=== PATIENT | female | born 1990 | race Caucasian/White ===

== ENCOUNTER 2017-12-25 18:21 | Inpatient (IN) | payer BC ==
[2017-12-25] MEDS ORDERED: Acetaminophen 325 MG Tab PO PRN (18:50)
[2017-12-25] MEDS ORDERED: Ondansetron 4 MG Tab.DIS PO PRN (18:50)
[2017-12-25] MEDS ORDERED: Sodium Chloride 0.9% 10 ML Syringe FLUSH PRN (18:50)
--- NOTE | 2017-12-25 18:59 | PCM.LDHP ---
L&D History of Present Illness - General Date of Service: 12/25/17 (labor) Admit Problem/Dx: Patient Status Order with Admit Dx/Problem 12/25/17 18:51 Patient Status [ADT] Routine Admission Diagnosis/Problem Admission Diagnosis/Problem and not yet delivered Source of Information: Patient History Limitations: Reports: No Limitations - History of Present Illness Introduction:: THis 27 year old G1 who is 40 gestation today present sin active labor. Contractions started this morning. Then became strong between 330-400 this afternoon. Call and was instructed to come. Is dilated to 8 cm. 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: : 1 Para: 0 LMP (Approximate): (ANGELA 12/25/17) H&P Review of Systems - Review of Systems: Review Of Systems: See Below General: Reports: No Symptoms HEENT: Reports: No Symptoms Pulmonary: Reports: No Symptoms Cardiovascular: Reports: No Symptoms Gastrointestinal: Reports: No Symptoms Genitourinary: Reports: No Symptoms Musculoskeletal: Reports: No Symptoms Skin: Reports: No Symptoms Psychiatric: Reports: No Symptoms Neurological: Reports: No Symptoms Hematologic/Lymphatic: Reports: No Symptoms Immunologic: Reports: No Symptoms L&D Exam - Exam Exam: See Below - Vital Signs Weight: 194 lb - OB Specific Contraction Intensity: Moderate Movement: Active Heart Tones: Present Heart Tones per Min: 150 Heart Rate (FHR) Variability: Moderate (6-25 bmp) Presentation: Vertex Estimated Weight: 7-8 pounds - Daley Score Daley Score Cervix Position: Anterior Daley Score Consistency: Soft Daley Score Effacement: >80% Daley Score Dilation: > 5 cm Daley Score 's Station: +1, +2 Daley Score Total: 13 - Exam General: Alert, Oriented HEENT: PERRLA, Conjunctiva Clear, EACs Clear, EOMI, Hearing Intact, Mucosa Moist & [place], Nares Patent, Normal Nasal Septum, Posterior Pharynx Clear, TMs Clear Neck: Supple, Trachea Midline Lungs: Clear to Auscultation, Normal Respiratory Effort Cardiovascular: Regular Rate, Regular Rhythm GI/Abdominal Exam: Normal Bowel Sounds, Soft, Non-Tender, No Organomegaly, No Distention, No Abnormal Bruit, No Mass, Pelvis Stable Rectal Exam: Normal Exam, Normal Rectal Tone Genitourinary: Normal external exam, Normal bimanual exam, Normal speculum exam Back Exam: Normal Inspection, Full Range of Motion Extremities: Normal Inspection, Normal Range of Motion, Non-Tender, No Pedal Edema, Normal Capillary Refill Skin: Warm, Dry, Intact Neurological: Cranial Nerves Intact, Reflexes Equal Bilateral Psychiatric: Alert, Normal Affect, Normal Mood - Problem List (1) SNOMED Code(s): 77988939 ICD Code: Z34.90 - ENCNTR FOR SUPRVSN OF NORMAL , UNSP, UNSP TRIMESTER Status: Acute Current Visit: Yes Qualifiers: Weeks of gestation: 40 weeks Qualified Code(s): Z3A.40 - 40 weeks gestation of (2) Labor established SNOMED Code(s): 79064725 ICD Code: [id number] - Status: Acute Current Visit: Yes Problem List Initiated/Reviewed/Updated: Yes Orders Last 24hrs: Active Orders 24 hr Category Date Time Status Patient Status [ADT] Routine ADT 12/25/17 18:51 Ordered Antiembolic Devices [RC] .Routine Care 12/25/17 18:52 Ordered Communication Order [RC] ASDIRECTED Care 12/25/17 18:51 Ordered Heart Tones [RC] PER UNIT ROUTINE Care 12/25/17 18:51 Ordered Notify Provider Vital Signs [RC] PRN Care 12/25/17 18:50 Ordered Notify Provider [RC] PRN Care 12/25/17 18:51 Ordered OB Check [OM.PC] Click to Edit Care 12/25/17 18:37 Ordered VTE/DVT Education [RC] Click to Edit Care 12/25/17 18:52 Ordered Vital Signs [RC] PER UNIT ROUTINE Care 12/25/17 18:51 Ordered Regular Diet [DIET] Diet 12/26/17 Breakfast Ordered CBC W/O DIFF,HEMOGRAM [HEME] Routine Lab 12/25/17 18:44 Ordered DRUG SCREEN, URINE [URCHEM] Routine Lab 12/25/17 18:44 Ordered UA W/MICROSCOPIC [URIN] Routine Lab 12/25/17 18:37 Ordered Acetaminophen [Tylenol] Med 12/25/17 18:50 Ordered 650 mg PO Q4H PRN Ondansetron [Zofran ODT] Med 12/25/17 18:50 Ordered 4 mg PO Q4H PRN Oxytocin/Normal Saline [Pitocin in NS 20 Units/1,000 ML Med 12/25/17 18:49 Ordered ] 20 unit in 1,000 ml IV ONETIME Sodium Chloride 0.9% [Saline Flush] Med 12/25/17 18:50 Ordered 10 ml FLUSH ASDIRECTED PRN DVT/VTE Prophylaxis Reflex [OM.PC] Routine Oth 12/25/17 18:50 Ordered Saline Lock Insert [OM.PC] Routine Oth 12/25/17 18:51 Ordered Resuscitation Status Routine Resus Stat 12/25/17 18:50 Ordered Medication Orders Oxytocin/Sodium Chloride (Pitocin In Ns 20 Units/1,000 Ml) 20 unit in 1,000 mls @ 999 mls/hr IV ONETIME ONE PRN Reason: Protocol Stop: 12/25/17 19:49 Assessment/Plan Comment:: 12/25/17 27 year old g1 40 weeks Active labor Paln for vaginal delivery
[2017-12-25] MEDS ORDERED: Lactated Ringers 1,000 ML IV SCH (19:20)
[2017-12-25] MEDS ORDERED: Lidocaine 1% 50 ML MDV ONE (21:34)
[2017-12-25] MEDS ORDERED: Acetaminophen/Codeine 300-30 MG Tab PO PRN (22:57)
--- NOTE | 2017-12-25 23:10 | PCM.DEL ---
L & D Note - General Info Date of Service: 12/25/17 Mother's Due Date: 12/25/17 - Delivery Note Labor: Spontaneous Delivery Outcome: Livebirth Infant Delivery Method: Spontaneous Vaginal Delivery-Single Infant Delivery Mode: Vacuum Extraction Presentation: Right Occiput Posterior (ROP) Nuchal Cord: Present Anesthesia Type: Local Local Anesthetic Volume: 5cc Amniotic Fluid Description: Clear Episiotomy Type: None Laceration: 3rd Degree, Perineal, Vaginal Suture type: Chromic Suture size: 3-0 Placenta: Intact, Spontaneous Cord: 3 Vessels Estimated Blood Loss: 300 (from delivery) Resuscitation Needed: No : Bulb Syringe, Stimulated, Warmed, Canal [place] Used Provider: Pia Dobbs Score 1 min: 8 Score 5 min: 9 Post Delivery Events: Other (see below) (vagina wall tear and 3 degree perineal tear with repair in OR) Second Stage Interventions: Reports: Second Nurse Reviewed Heart Tones, Encouragement Given, Pushing, Knee Chest Position, Pushing, McRobert's Position , Pushing, Squat Bar Pulling on Device, Pushing, Stirrups/Leg Supports Delivery Comments (Free Text/Narrative):: This 27 year old G1 now P1 who is 40 weeks gestation delivered at 2153 via with vacuum assist a viable male infant in ROP, there was a nucal cord which was reduced before delivery of body. The was placed on mother's abdomen where he cried spontaneously, he was dried and stimulated, the cord was double clamped and cut. three vessels. Apgars 8 and 9 all for color. The placenta was expressed spontaneously intact. There was a right vaginal wall tear and a deep second degree perineal tear. the muscle wasn't tore at the sphincter but top of the rectal muscle wall was visualized. No lacerations of the cervix were found. EBL 300cc Mother and baby to post and nursery in stable condition. procedure note repair of right vaginal wall laceration and deep 2nd perineal tear under region spinal and OR. Surgeon: Pia Dobbs CNM business development assistant Evangelist Dobbs MD pre-op Diagnosis right vagina wall taer and deep second degree perineal tear. Post -op DX: same Anesthesia: spinal EBL 100cc Complications none Informed consent was obtained prior to repair and risks and benefits were reviewed. Procedure: Bliss placed The apex of the vagina wall tear was visualized and a deep stitch was placed. Then locking running stitches were placed until the hymenal ring. Then deep interrupted sutures were placed to close the deep space. a figure of eight suture was placed at the hymenal ring. A digital exam was done to assess for rectal wall disruption, none found. The perineum was then repaired as a episiotomy, the fascia and muscles repaired in layers with subcuticular and finishing with cuticular, reassessment of rectum no sutures or disruptions found. Patient to recovery in stable condition Vacuum Extractor Progress Note - Alternative Labor Strategies Considered Alternative Labor Strategies Considered:: Reports: Yes Time Out:: Reports: Yes - Patient Prepared Patient Prepared:: Reports: Yes Informed Consent:: Reports: Yes Risks: Reports: Yes Risks Include:: Reports: Laceration, Shoulder Dystocia, Maternal Injury Anesthesia/Analgesia Adequate:: Reports: Yes - Probability of Success High Probability of Success:: Reports: Yes Weight Estimated:: Reports: AGA Patient Diabetic:: Reports: No Pelvis Adequate:: Reports: Yes Asynclitic:: Reports: No - Application Time Maximum Application Time & Number of Pop-Offs Predetermined:: Reports: Yes Type of Vacuum Used:: Reports: Cup: Mushroom type Vacuum Extraction: Successful - Exit Strategy Exit strategy available:: Reports: Yes and resuscitation teams readily available:: Reports: Yes - General Info Date of Service: 12/25/17 Admission Dx/Problem (Free Text): Patient Status Order with Admit Dx/Problem 12/25/17 18:51 Patient Status [ADT] Routine Admission Diagnosis/Problem Admission Diagnosis/Problem and not yet delivered Functional Status: Reports: Pain Controlled - Review of Systems General: Reports: No Symptoms HEENT: Reports: No Symptoms Pulmonary: Reports: No Symptoms Cardiovascular: Reports: No Symptoms Gastrointestinal: Reports: No Symptoms Genitourinary: Reports: No Symptoms Musculoskeletal: Reports: No Symptoms Skin: Reports: No Symptoms Neurological: Reports: No Symptoms Psychiatric: Reports: No Symptoms - Patient Data Vitals - Most Recent: Last Vital Signs Temp 98.8 F 12/25/17 19:21 Pulse Resp 16 12/25/17 19:21 BP 128/98 H 12/25/17 19:21 Pulse Ox Weight - Most Recent: 194 lb Lab Results Last 24 Hours: Laboratory Results - last 24 hr 12/25/17 12/25/17 12/25/17 Range/Units 18:37 18:44 18:54 WBC 15.8 H (4.5-11.0) K/uL RBC 4.46 (3.30-5.50) M/uL Hgb 13.0 (12.0-15.0) g/dL Hct 38.4 (36.0-48.0) % MCV 86 (80-98) fL MCH 29 (27-31) pg MCHC 34 (32-36) % Plt Count 248 (150-400) K/uL Urine Color Yellow Urine Appearance Cloudy Urine pH 6.0 (4.5-8.0) Ur Specific [place] 1.020 (1.008-1.030) Urine Protein Negative (NEGATIVE) mg/dL Urine Glucose (UA) Normal (NEGATIVE) mg/dL Urine Ketones 150 H (NEGATIVE) mg/dL Urine Occult Blood Large (NEGATIVE) Urine Nitrite Negative (NEGATIVE) Urine Bilirubin Small (NEGATIVE) Urine Urobilinogen Normal (NORMAL) mg/dL Ur Leukocyte Esterase Moderate (NEGATIVE) Urine RBC 10-20 H (0-5) Urine WBC 10-20 H (0-5) Ur Epithelial Cells Many Amorphous Sediment Rare Urine Bacteria Many Urine Mucus Few Urine Opiates Screen Negative (NEGATIVE) Ur Oxycodone Screen Negative (NEGATIVE) Urine Methadone Screen Negative (NEGATIVE) Ur Propoxyphene Screen Negative (NEGATIVE) Ur Barbiturates Screen Negative (NEGATIVE) Ur Tricyclics Screen Negative (NEGATIVE) Ur Phencyclidine Scrn Negative (NEGATIVE) Ur Amphetamine Screen Negative (NEGATIVE) U Methamphetamines Scrn Negative (NEGATIVE) Urine MDMA Screen Negative (NEGATIVE) U Benzodiazepines Scrn Negative (NEGATIVE) U Cocaine Metab Screen Negative (NEGATIVE) U Marijuana (THC) Screen Negative (NEGATIVE) Med Orders - Current: Current Medications Acetaminophen (Tylenol) 650 mg PO Q4H PRN PRN Reason: Pain (Mild 1-3) and fever Acetaminophen/Codeine Phosphate (Tylenol With Codeine No.3 300mg/30mg) 1 tab PO Q4H PRN PRN Reason: Pain (moderate 4-6) Docusate Sodium (Colace) 100 mg PO BID [facility] Lactated Ringer's (Ringers, Lactated) 1,000 mls @ 50 mls/hr IV ASDIRECTED [facility] Last Admin: 12/25/17 19:20 Dose: 50 mls/hr Ibuprofen (Motrin) 600 mg PO Q6H PRN PRN Reason: mild pain or fever Ondansetron HCl (Zofran Odt) 4 mg PO Q4H PRN PRN Reason: Nausea/Vomiting Sodium Chloride (Saline Flush) 10 ml FLUSH ASDIRECTED PRN PRN Reason: Keep Vein Open Discontinued Medications Oxytocin/Sodium Chloride (Pitocin In Ns 20 Units/1,000 Ml) 20 unit in 1,000 mls @ 999 mls/hr IV ONETIME ONE PRN Reason: Protocol Stop: 12/25/17 19:49 Lidocaine HCl (Xylocaine 1%) Confirm Administered Dose 50 ml .ROUTE .STK-MED ONE Stop: 12/25/17 21:35 - Exam General: Alert, Oriented HEENT: Pupils Equal, Pupils Reactive, EOMI, Mucous Membr. Moist/[place] Neck: Supple Lungs: Clear to Auscultation, Normal Respiratory Effort Cardiovascular: Regular Rate, Regular Rhythm GI/Abdominal Exam: Normal Bowel Sounds, Soft, Non-Tender, No Organomegaly, No Distention, No Abnormal Bruit, No Mass, Pelvis Stable (Female) Exam: Normal External Exam, Normal Speculum Exam, Normal Bimanual Exam, Enlarged Uterus, Vaginal Bleeding, Vaginal Tears Back Exam: Normal Inspection, Full Range of Motion Extremities: Normal Inspection, Normal Range of Motion, Non-Tender, No Pedal Edema, Normal Capillary Refill Skin: Warm, Dry, Intact Wound/Incisions: Healing Well Neurological: No New Focal Deficit Psy/Mental Status: Alert, Normal Affect, Normal Mood - Problem List & Annotations (1) SNOMED Code(s): 48108917 Code(s): Z34.90 - ENCNTR FOR SUPRVSN OF NORMAL , UNSP, UNSP TRIMESTER Status: Acute Current Visit: Yes Qualifiers: Weeks of gestation: 40 weeks Qualified Code(s): Z3A.40 - 40 weeks gestation of (2) Labor established SNOMED Code(s): 98403429 Code(s): ZPP8928 - Status: Acute Current Visit: Yes (3) Delivery of first by vacuum extraction SNOMED Code(s): 126561442 Code(s): O75.9 - COMPLICATION OF LABOR AND DELIVERY, UNSPECIFIED Status: Acute Current Visit: Yes (4) Vaginal tear resulting from childbirth SNOMED Code(s): 621342747 Code(s): O71.4 - OBSTETRIC HIGH VAGINAL LACERATION ALONE Status: Acute Current Visit: Yes (5) Vaginal delivery SNOMED Code(s): 538664858 Code(s): O80 - ENCOUNTER FOR FULL-TERM UNCOMPLICATED DELIVERY Status: Acute Current Visit: Yes - Problem List Review Problem List Initiated/Reviewed/Updated: Yes - My Orders Last 24 Hours: My Active Orders 12/25/17 18:37 OB Check [OM.PC] Click to Edit 12/25/17 18:50 Notify Provider Vital Signs [RC] PRN Acetaminophen [Tylenol] 650 mg PO Q4H PRN Ondansetron [Zofran ODT] 4 mg PO Q4H PRN Sodium Chloride 0.9% [Saline Flush] 10 ml FLUSH ASDIRECTED PRN DVT/VTE Prophylaxis Reflex [OM.PC] Routine Resuscitation Status Routine 12/25/17 18:51 Communication Order [RC] ASDIRECTED Heart Tones [RC] PER UNIT ROUTINE Vital Signs [RC] PER UNIT ROUTINE Saline Lock Insert [OM.PC] Routine 12/25/17 18:52 Antiembolic Devices [RC] .Routine VTE/DVT Education [RC] Click to Edit 12/25/17 19:20 Lactated Ringers [Ringers, Lactated] 1,000 ml IV ASDIRECTED 12/25/17 22:55 CBC W/O DIFF,HEMOGRAM [HEME] Routine 12/25/17 22:56 TYPE AND SCREEN [BBK] Routine 12/25/17 22:57 Patient Status [ADT] Routine Vital Signs [RC] PFP Acetaminophen/Codeine [Tylenol with Codeine No.3 300MG/30MG] 1 tab PO Q4H PRN Ibuprofen [Motrin] 600 mg PO Q6H PRN 12/26/17 05:11 CBC WITH AUTO DIFF [HEME] AM 12/26/17 09:00 Docusate Sodium [Colace] 100 mg PO BID 12/26/17 Breakfast Regular Diet [DIET] - Assessment Assessment:: 12/25/17 27 year old 40 weeks gestation with , Complications vaginal wall tear and 3 rd degree perineal tear with repairs breast feeding bliss until 0800 12/26/17 routine post cares ice to bottom times 24 hours stool softener ordered, scheduled hgb in am - Plan Plan:: 12/25/17 27 year old g1 40 weeks Active labor Plan for vaginal delivery vaginal delivery with tears repaired in OR see note 48 hour stay
[2017-12-26] MEDS: Ibuprofen 600 MG Tab PO PRN ×4 (00:41→21:12)
[2017-12-26] MEDS ORDERED: Lidocaine 1% 50 ML MDV INJECT ONE (03:43)
[2017-12-26] MEDS: Docusate Sodium 100 MG Cap PO SCH ×2 (09:12→21:12)
--- NOTE | 2017-12-26 10:26 | PCM.PNPP ---
- General Info Date of Service: 12/26/17 (PPD one) Admission Dx/Problem (Free Text): Patient Status Order with Admit Dx/Problem 12/25/17 18:51 Patient Status [ADT] Routine Admission Diagnosis/Problem Admission Diagnosis/Problem and not yet delivered Functional Status: Reports: Pain Controlled - Review of Systems General: Reports: No Symptoms HEENT: Reports: No Symptoms Pulmonary: Reports: No Symptoms Cardiovascular: Reports: No Symptoms Gastrointestinal: Reports: Other (lots of pressure from swelling and repair work ) Genitourinary: Reports: Other (hasn't voided since bliss out at 0830, nursing to monitor) Musculoskeletal: Reports: No Symptoms Skin: Reports: No Symptoms Neurological: Reports: No Symptoms Psychiatric: Reports: No Symptoms - General Info Date of Service: 12/26/17 - Patient Data Vital Signs - Most Recent: Last Vital Signs Temp 98.6 F 12/26/17 08:00 Pulse 99 12/26/17 08:00 Resp 16 12/26/17 08:00 BP 130/92 H 12/26/17 08:00 Pulse Ox 97 12/26/17 08:00 Weight - Most Recent: 194 lb I&O - Last 24 Hours: Intake & Output 12/25/17 12/26/17 12/26/17 22:59 06:59 14:59 Intake Total 300 Output Total 1350 500 Balance -1050 -500 Lab Results - Last 24 Hours: Laboratory Results - last 24 hr 12/25/17 12/25/17 12/25/17 Range/Units 18:37 18:44 18:54 WBC 15.8 H (4.5-11.0) K/uL RBC 4.46 (3.30-5.50) M/uL Hgb 13.0 (12.0-15.0) g/dL Hct 38.4 (36.0-48.0) % MCV 86 (80-98) fL MCH 29 (27-31) pg MCHC 34 (32-36) % Plt Count 248 (150-400) K/uL Neut % (Auto) (36-66) % Lymph % (Auto) (24-44) % [place] % (Auto) (2-6) % Eos % (Auto) (2-4) % Baso % (Auto) (0-1) % Urine Color Yellow Urine Appearance Cloudy Urine pH 6.0 (4.5-8.0) Ur Specific [place] 1.020 (1.008-1.030) Urine Protein Negative (NEGATIVE) mg/dL Urine Glucose (UA) Normal (NEGATIVE) mg/dL Urine Ketones 150 H (NEGATIVE) mg/dL Urine Occult Blood Large (NEGATIVE) Urine Nitrite Negative (NEGATIVE) Urine Bilirubin Small (NEGATIVE) Urine Urobilinogen Normal (NORMAL) mg/dL Ur Leukocyte Esterase Moderate (NEGATIVE) Urine RBC 10-20 H (0-5) Urine WBC 10-20 H (0-5) Ur Epithelial Cells Many Amorphous Sediment Rare Urine Bacteria Many Urine Mucus Few Urine Opiates Screen Negative (NEGATIVE) Ur Oxycodone Screen Negative (NEGATIVE) Urine Methadone Screen Negative (NEGATIVE) Ur Propoxyphene Screen Negative (NEGATIVE) Ur Barbiturates Screen Negative (NEGATIVE) Ur Tricyclics Screen Negative (NEGATIVE) Ur Phencyclidine Scrn Negative (NEGATIVE) Ur Amphetamine Screen Negative (NEGATIVE) U Methamphetamines Scrn Negative (NEGATIVE) Urine MDMA Screen Negative (NEGATIVE) U Benzodiazepines Scrn Negative (NEGATIVE) U Cocaine Metab Screen Negative (NEGATIVE) U Marijuana (THC) Screen Negative (NEGATIVE) Blood Type Gel Antibody Screen 12/25/17 12/25/17 12/26/17 Range/Units 22:55 22:55 05:00 WBC 22.5 H 20.5 H (4.5-11.0) K/uL RBC 4.08 3.61 (3.30-5.50) M/uL Hgb 11.9 L 10.7 L (12.0-15.0) g/dL Hct 35.3 L 31.4 L (36.0-48.0) % MCV 87 87 (80-98) fL MCH 29 30 (27-31) pg MCHC 34 34 (32-36) % Plt Count 217 215 (150-400) K/uL Neut % (Auto) 85 H (36-66) % Lymph % (Auto) 7 L (24-44) % [place] % (Auto) 8 H (2-6) % Eos % (Auto) 0 L (2-4) % Baso % (Auto) 0 (0-1) % Urine Color Urine Appearance Urine pH (4.5-8.0) Ur Specific [place] (1.008-1.030) Urine Protein (NEGATIVE) mg/dL Urine Glucose (UA) (NEGATIVE) mg/dL Urine Ketones (NEGATIVE) mg/dL Urine Occult Blood (NEGATIVE) Urine Nitrite (NEGATIVE) Urine Bilirubin (NEGATIVE) Urine Urobilinogen (NORMAL) mg/dL Ur Leukocyte Esterase (NEGATIVE) Urine RBC (0-5) Urine WBC (0-5) Ur Epithelial Cells Amorphous Sediment Urine Bacteria Urine Mucus Urine Opiates Screen (NEGATIVE) Ur Oxycodone Screen (NEGATIVE) Urine Methadone Screen (NEGATIVE) Ur Propoxyphene Screen (NEGATIVE) Ur Barbiturates Screen (NEGATIVE) Ur Tricyclics Screen (NEGATIVE) Ur Phencyclidine Scrn (NEGATIVE) Ur Amphetamine Screen (NEGATIVE) U Methamphetamines Scrn (NEGATIVE) Urine MDMA Screen (NEGATIVE) U Benzodiazepines Scrn (NEGATIVE) U Cocaine Metab Screen (NEGATIVE) U Marijuana (THC) Screen (NEGATIVE) Blood Type A POSITIVE Gel Antibody Screen Negative Med Orders - Current: Current Medications Acetaminophen (Tylenol) 650 mg PO Q4H PRN PRN Reason: Pain (Mild 1-3) and fever Acetaminophen/Codeine Phosphate (Tylenol With Codeine No.3 300mg/30mg) 1 tab PO Q4H PRN PRN Reason: Pain (moderate 4-6) Docusate Sodium (Colace) 100 mg PO BID [facility] Last Admin: 12/26/17 09:12 Dose: 100 mg Ibuprofen (Motrin) 600 mg PO Q6H PRN PRN Reason: mild pain or fever Last Admin: 12/26/17 09:11 Dose: 600 mg Ondansetron HCl (Zofran Odt) 4 mg PO Q4H PRN PRN Reason: Nausea/Vomiting Sodium Chloride (Saline Flush) 10 ml FLUSH ASDIRECTED PRN PRN Reason: Keep Vein Open Discontinued Medications Oxytocin/Sodium Chloride (Pitocin In Ns 20 Units/1,000 Ml) 20 unit in 1,000 mls @ 999 mls/hr IV ONETIME ONE PRN Reason: Protocol Stop: 12/25/17 19:49 Last Admin: 12/25/17 21:55 Dose: 999 ml/hr, 999 mls/hr Lactated Ringer's (Ringers, Lactated) 1,000 mls @ 50 mls/hr IV ASDIRECTED [facility] Last Admin: 12/25/17 19:20 Dose: 50 mls/hr Lidocaine HCl (Xylocaine 1%) Confirm Administered Dose 50 ml .ROUTE .STK-MED ONE Stop: 12/25/17 21:35 Last Admin: 12/26/17 04:13 Dose: Not Given Lidocaine HCl (Xylocaine 1%) 50 ml INJECT ONETIME ONE Stop: 12/26/17 03:44 Last Admin: 12/25/17 22:00 Dose: 50 ml - Infant Interaction Infant Disposition, : in Room with Family Interaction: Holding Infant Infant Feeding: Breastfed ; Nursed Well Support Person: - Recovery Exam Fundal Tone: Firm Fundal Level: At Umbilicus Fundal Placement: Midline Lochia Amount: Small Lochia Color: Rubra/Red Perineum Description: Edematous, Hemorrhoids Other Perinuem Description: digital exam, no hematomas found, generalized swelling of perineum Episiotomy/Laceration: Approximated (repair intact and looks great) - Exam General: Alert, Oriented HEENT: Pupils Equal, Pupils Reactive, EOMI, Mucous Membr. Moist/[place] Neck: Supple Lungs: Clear to Auscultation, Normal Respiratory Effort Cardiovascular: Regular Rate, Regular Rhythm GI/Abdominal Exam: Soft, Non-Tender Extremities: Normal Inspection, Normal Range of Motion, Non-Tender, No Pedal Edema, Normal Capillary Refill Skin: Warm, Dry, Intact Neurological: No New Focal Deficit Psy/Mental Status: Alert, Normal Affect, Normal Mood - Problem List & Annotations (1) SNOMED Code(s): 64493583 Code(s): Z34.90 - ENCNTR FOR SUPRVSN OF NORMAL , UNSP, UNSP TRIMESTER Status: Acute Current Visit: Yes Qualifiers: Weeks of gestation: 40 weeks Qualified Code(s): Z3A.40 - 40 weeks gestation of (2) Labor established SNOMED Code(s): 37751084 Code(s): KQE2172 - Status: Acute Current Visit: Yes (3) Delivery of first by vacuum extraction SNOMED Code(s): 641886255 Code(s): O75.9 - COMPLICATION OF LABOR AND DELIVERY, UNSPECIFIED Status: Acute Current Visit: Yes (4) Vaginal tear resulting from childbirth SNOMED Code(s): 376526195 Code(s): O71.4 - OBSTETRIC HIGH VAGINAL LACERATION ALONE Status: Acute Current Visit: Yes (5) Vaginal delivery SNOMED Code(s): 846828560 Code(s): O80 - ENCOUNTER FOR FULL-TERM UNCOMPLICATED DELIVERY Status: Acute Current Visit: Yes - Problem List Review Problem List Initiated/Reviewed/Updated: Yes - My Orders Last 24 Hours: My Active Orders 12/25/17 18:37 OB Check [OM.PC] Click to Edit 12/25/17 18:50 Notify Provider Vital Signs [RC] PRN Acetaminophen [Tylenol] 650 mg PO Q4H PRN Ondansetron [Zofran ODT] 4 mg PO Q4H PRN Sodium Chloride 0.9% [Saline Flush] 10 ml FLUSH ASDIRECTED PRN DVT/VTE Prophylaxis Reflex [OM.PC] Routine Resuscitation Status Routine 12/25/17 18:51 Vital Signs [RC] Q4H Saline Lock Insert [OM.PC] Routine 12/25/17 18:52 Antiembolic Devices [RC] .Routine VTE/DVT Education [RC] Click to Edit 12/25/17 22:55 PATIENT RETYPE [BBK] Routine TYPE AND SCREEN [BBK] Routine 12/25/17 22:57 Patient Status [ADT] Routine Acetaminophen/Codeine [Tylenol with Codeine No.3 300MG/30MG] 1 tab PO Q4H PRN Ibuprofen [Motrin] 600 mg PO Q6H PRN 12/26/17 00:01 Insert Urinary Catheter [OM.PC] Q24H 12/26/17 03:36 Convert IV to Saline Lock [OM.PC] Routine 12/26/17 09:00 Docusate Sodium [Colace] 100 mg PO BID 12/26/17 Breakfast Regular Diet [DIET] - Assessment Assessment:: 12/25/17 27 year old 40 weeks gestation with , Complications vaginal wall tear and 3 rd degree perineal tear with repairs breast feeding bliss until 0800 12/26/17 routine post cares ice to bottom times 24 hours stool softener ordered, scheduled hgb in am 12/26/17 HGB 10.7 swollen tender bottom, repair work all intact and no hematomas hasn't voided yet since bliss out, nursing to monitor going well - Plan Plan:: 12/25/17 27 year old g1 40 weeks Active labor Plan for vaginal delivery vaginal delivery with tears repaired in OR see note 48 hour stay 12/26/17 Ice to bottom Education about repair and what to expect the next few days Will stay until Wednesday
[2017-12-27] MEDS: Ibuprofen 600 MG Tab PO PRN ×3 (04:23→16:23)
[2017-12-27] MEDS: Docusate Sodium 100 MG Cap PO SCH ×2 (10:31→20:59)
[2017-12-27] MEDS: Benzocaine 20% Top Spray 56 GM Bottle TOP PRN (13:11)
--- NOTE | 2017-12-27 13:15 | PCM.PNPP ---
- General Info Date of Service: 12/27/17 (PPD 2) Admission Dx/Problem (Free Text): Patient Status Order with Admit Dx/Problem 12/25/17 18:51 Patient Status [ADT] Routine Admission Diagnosis/Problem Admission Diagnosis/Problem and not yet delivered Functional Status: Reports: Pain Controlled - Review of Systems General: Reports: No Symptoms HEENT: Reports: No Symptoms Pulmonary: Reports: No Symptoms Cardiovascular: Reports: No Symptoms Gastrointestinal: Reports: No Symptoms Genitourinary: Reports: No Symptoms Musculoskeletal: Reports: No Symptoms Skin: Reports: No Symptoms Neurological: Reports: No Symptoms Psychiatric: Reports: No Symptoms - Patient Data Vital Signs - Most Recent: Last Vital Signs Temp 96.5 F 12/27/17 10:10 Pulse 91 12/27/17 10:10 Resp 18 12/27/17 10:10 BP 108/65 12/27/17 10:10 Pulse Ox 98 12/27/17 10:10 Weight - Most Recent: 194 lb I&O - Last 24 Hours: Intake & Output 12/26/17 12/27/17 12/27/17 22:59 06:59 14:59 Intake Total 1200 Balance 1200 Med Orders - Current: Current Medications Acetaminophen (Tylenol) 650 mg PO Q4H PRN PRN Reason: Pain (Mild 1-3) and fever Last Admin: 12/27/17 07:27 Dose: 650 mg Acetaminophen/Codeine Phosphate (Tylenol With Codeine No.3 300mg/30mg) 1 tab PO Q4H PRN PRN Reason: Pain (moderate 4-6) Benzocaine (Quvt-G-Rftraax 20% [place]) 0 gm TOP ASDIRECTED PRN PRN Reason: Pain (moderate 4-6) Last Admin: 12/27/17 13:11 Dose: 1 spray Docusate Sodium (Colace) 100 mg PO BID MADDY Last Admin: 12/27/17 10:31 Dose: 100 mg Ibuprofen (Motrin) 600 mg PO Q6H PRN PRN Reason: mild pain or fever Last Admin: 12/27/17 10:31 Dose: 600 mg Ondansetron HCl (Zofran Odt) 4 mg PO Q4H PRN PRN Reason: Nausea/Vomiting Sodium Chloride (Saline Flush) 10 ml FLUSH ASDIRECTED PRN PRN Reason: Keep Vein Open Discontinued Medications Oxytocin/Sodium Chloride (Pitocin In Ns 20 Units/1,000 Ml) 20 unit in 1,000 mls @ 999 mls/hr IV ONETIME ONE PRN Reason: Protocol Stop: 12/25/17 19:49 Last Admin: 12/25/17 21:55 Dose: 999 ml/hr, 999 mls/hr Lactated Ringer's (Ringers, Lactated) 1,000 mls @ 50 mls/hr IV [facility]ED [facility] Last Admin: 12/25/17 19:20 Dose: 50 mls/hr Lidocaine HCl (Xylocaine 1%) Confirm Administered Dose 50 ml .ROUTE .STK-MED ONE Stop: 12/25/17 21:35 Last Admin: 12/26/17 04:13 Dose: Not Given Lidocaine HCl (Xylocaine 1%) 50 ml INJECT ONETIME ONE Stop: 12/26/17 03:44 Last Admin: 12/25/17 22:00 Dose: 50 ml - Infant Interaction Infant Disposition, : Happy in Room with Family Infant Interaction: Holding Infant Feeding: Breastfed Infant; Nursed Well Support Person: - Recovery Exam Fundal Tone: Firm Fundal Level: At Umbilicus Fundal Placement: Midline Lochia Amount: Small Lochia Color: Rubra/Red Perineum Description: Edematous Other Perinuem Description: digital exam, no hematomas found, generalized swelling of perineum Episiotomy/Laceration: Approximated Bladder Status: Indwelling Catheter in Place Urinary Elimination: Voided - Exam General: Alert, Oriented HEENT: Pupils Equal Neck: Supple Lungs: Clear to Auscultation, Normal Respiratory Effort Cardiovascular: Regular Rate, Regular Rhythm GI/Abdominal Exam: Normal Bowel Sounds, Soft, Non-Tender, No Organomegaly, No Distention, No Abnormal Bruit, No Mass, Pelvis Stable Extremities: Normal Inspection, Normal Range of Motion, Non-Tender, No Pedal Edema, Normal Capillary Refill Skin: Warm, Dry, Intact Wound/Incisions: Healing Well Neurological: No New Focal Deficit Psy/Mental Status: Alert, Normal Affect, Normal Mood - Problem List & Annotations (1) SNOMED Code(s): 20108488 Code(s): Z34.90 - ENCNTR FOR SUPRVSN OF NORMAL , UNSP, UNSP TRIMESTER Status: Acute Current Visit: Yes Qualifiers: Weeks of gestation: 40 weeks Qualified Code(s): Z3A.40 - 40 weeks gestation of (2) Labor established SNOMED Code(s): 53491241 Code(s): KHL1843 - Status: Acute Current Visit: Yes (3) Delivery of first by vacuum extraction SNOMED Code(s): 319833963 Code(s): O75.9 - COMPLICATION OF LABOR AND DELIVERY, UNSPECIFIED Status: Acute Current Visit: Yes (4) Vaginal tear resulting from childbirth SNOMED Code(s): 067077824 Code(s): O71.4 - OBSTETRIC HIGH VAGINAL LACERATION ALONE Status: Acute Current Visit: Yes (5) Vaginal delivery SNOMED Code(s): 131863305 Code(s): O80 - ENCOUNTER FOR FULL-TERM UNCOMPLICATED DELIVERY Status: Acute Current Visit: Yes - Problem List Review Problem List Initiated/Reviewed/Updated: Yes - My Orders Last 24 Hours: My Active Orders 12/27/17 12:45 Benzocaine [Frdx-D-Nwkpmbx 20% [place]] 0 gm TOP ASDIRECTED PRN - Assessment Assessment:: 12/25/17 27 year old 40 weeks gestation with , Complications vaginal wall tear and 3 rd degree perineal tear with repairs breast feeding bliss until 0800 12/26/17 routine post cares ice to bottom times 24 hours stool softener ordered, scheduled hgb in am 12/26/17 HGB 10.7 swollen tender bottom, repair work all intact and no hematomas hasn't voided yet since bliss out, nursing to monitor going well 12/27/17 Doing well today, no problems Bottom is feeling better, swelling is down some no problems - Plan Plan:: 12/25/17 27 year old g1 40 weeks Active labor Plan for vaginal delivery vaginal delivery with tears repaired in OR see note 48 hour stay 12/26/17 Ice to bottom Education about repair and what to expect the next few days Will stay until 12/27/17 Home tomorrow education done today
--- NOTE | 2017-12-28 07:07 | PCM.PNPP ---
- General Info Date of Service: 12/28/17 (D/C) Admission Dx/Problem (Free Text): Patient Status Order with Admit Dx/Problem 12/25/17 18:51 Patient Status [ADT] Routine Admission Diagnosis/Problem Admission Diagnosis/Problem and not yet delivered Functional Status: Reports: Pain Controlled - Review of Systems General: Reports: No Symptoms HEENT: Reports: No Symptoms Pulmonary: Reports: No Symptoms Cardiovascular: Reports: No Symptoms Gastrointestinal: Reports: No Symptoms Genitourinary: Reports: No Symptoms Musculoskeletal: Reports: No Symptoms Skin: Reports: No Symptoms Neurological: Reports: No Symptoms Psychiatric: Reports: No Symptoms - General Info Date of Service: 12/28/17 - Patient Data Vital Signs - Most Recent: Last Vital Signs Temp 97.5 F 12/28/17 01:00 Pulse 84 12/28/17 01:00 Resp 18 12/28/17 01:00 BP 114/70 12/28/17 01:00 Pulse Ox 96 12/28/17 01:00 Weight - Most Recent: 194 lb Med Orders - Current: Current Medications Acetaminophen (Tylenol) 650 mg PO Q4H PRN PRN Reason: Pain (Mild 1-3) and fever Last Admin: 12/27/17 07:27 Dose: 650 mg Acetaminophen/Codeine Phosphate (Tylenol With Codeine No.3 300mg/30mg) 1 tab PO Q4H PRN PRN Reason: Pain (moderate 4-6) Benzocaine (Ials-F-Pbvnhfr 20% [place]) 0 gm TOP ASDIRECTED PRN PRN Reason: Pain (moderate 4-6) Last Admin: 12/27/17 13:11 Dose: 1 spray Docusate Sodium (Colace) 100 mg PO BID MADDY Last Admin: 12/27/17 20:59 Dose: 100 mg Ibuprofen (Motrin) 600 mg PO Q6H PRN PRN Reason: mild pain or fever Last Admin: 12/27/17 16:23 Dose: 600 mg Ondansetron HCl (Zofran Odt) 4 mg PO Q4H PRN PRN Reason: Nausea/Vomiting Sodium Chloride (Saline Flush) 10 ml FLUSH ASDIRECTED PRN PRN Reason: Keep Vein Open Discontinued Medications Oxytocin/Sodium Chloride (Pitocin In Ns 20 Units/1,000 Ml) 20 unit in 1,000 mls @ 999 mls/hr IV ONETIME ONE PRN Reason: Protocol Stop: 12/25/17 19:49 Last Admin: 12/25/17 21:55 Dose: 999 ml/hr, 999 mls/hr Lactated Ringer's (Ringers, Lactated) 1,000 mls @ 50 mls/hr IV ASDIRECTED MADDY Last Admin: 12/25/17 19:20 Dose: 50 mls/hr Lidocaine HCl (Xylocaine 1%) Confirm Administered Dose 50 ml .ROUTE .STK-MED ONE Stop: 12/25/17 21:35 Last Admin: 12/26/17 04:13 Dose: Not Given Lidocaine HCl (Xylocaine 1%) 50 ml INJECT ONETIME ONE Stop: 12/26/17 03:44 Last Admin: 12/25/17 22:00 Dose: 50 ml - Interaction Disposition, : [place] in Room with Family Interaction: Holding Infant Feeding: Breastfed Infant; Nursed Well Support Person: - Recovery Exam Fundal Tone: Firm Fundal Level: At Umbilicus Fundal Placement: Midline Lochia Amount: Small Lochia Color: Serosa/Startex Perineum Description: Edematous Other Perinuem Description: digital exam, no hematomas found, generalized swelling of perineum Episiotomy/Laceration: Approximated Bladder Status: Indwelling Catheter in Place Urinary Elimination: Voided - Exam General: Alert, Oriented HEENT: Pupils Equal, Pupils Reactive, EOMI, Mucous Membr. Moist/Startex Neck: Supple Lungs: Clear to Auscultation, Normal Respiratory Effort Cardiovascular: Regular Rate, Regular Rhythm GI/Abdominal Exam: Soft, Non-Tender Extremities: Normal Inspection, Normal Range of Motion, Non-Tender, Normal Capillary Refill Skin: Warm, Dry, Intact Neurological: No New Focal Deficit Psy/Mental Status: Alert, Normal Affect, Normal Mood - Problem List & Annotations (1) SNOMED Code(s): 72997952 Code(s): Z34.90 - ENCNTR FOR SUPRVSN OF NORMAL , UNSP, UNSP TRIMESTER Status: Acute Current Visit: Yes Qualifiers: Weeks of gestation: 40 weeks Qualified Code(s): Z3A.40 - 40 weeks gestation of (2) Labor established SNOMED Code(s): 41993460 Code(s): WEC7594 - Status: Acute Current Visit: Yes (3) Delivery of first by vacuum extraction SNOMED Code(s): 429600290 Code(s): O75.9 - COMPLICATION OF LABOR AND DELIVERY, UNSPECIFIED Status: Acute Current Visit: Yes (4) Vaginal tear resulting from childbirth SNOMED Code(s): 214199647 Code(s): O71.4 - OBSTETRIC HIGH VAGINAL LACERATION ALONE Status: Acute Current Visit: Yes (5) Vaginal delivery SNOMED Code(s): 082682745 Code(s): O80 - ENCOUNTER FOR FULL-TERM UNCOMPLICATED DELIVERY Status: Acute Current Visit: Yes - Problem List Review Problem List Initiated/Reviewed/Updated: Yes - My Orders Last 24 Hours: My Active Orders 12/27/17 12:45 Benzocaine [Wtup-T-Ippwetj 20% [place]] 0 gm TOP ASDIRECTED PRN - Assessment Assessment:: 12/25/17 27 year old 40 weeks gestation with , Complications vaginal wall tear and 3 rd degree perineal tear with repairs breast feeding bliss until 0800 12/26/17 routine post cares ice to bottom times 24 hours stool softener ordered, scheduled hgb in am 12/26/17 HGB 10.7 swollen tender bottom, repair work all intact and no hematomas hasn't voided yet since bliss out, nursing to monitor going well 12/27/17 Doing well today, no problems Bottom is feeling better, swelling is down some no problems 12/28/17 Doing well Bottom better going well - Plan Plan:: 12/25/17 27 year old g1 40 weeks Active labor Plan for vaginal delivery vaginal delivery with tears repaired in OR see note 48 hour stay 12/26/17 Ice to bottom Education about repair and what to expect the next few days Will stay until 12/27/17 [place] tomorrow education done today 12/28/17 Home today see me 6 weeks OB check
[2017-12-28] MEDS ORDERED: Magnesium Hydroxide 400 MG/5 ML Susp 30 ML Cup PO ONE (09:00)
[2017-12-28] MEDS: Benzocaine 20% Top Spray 56 GM Bottle TOP PRN (09:07)
[2017-12-28] MEDS: Docusate Sodium 100 MG Cap PO SCH (09:07)
[2017-12-28] MEDS: Ibuprofen 600 MG Tab PO PRN (11:26)
== END 2017-12-28 12:00 | disposition home or self-care (01) | DRG 560 ==
LOC: JP.OBCHECK 18:21 → JP.OB 18:46 → OBSVTOIN 21:53 → JP.OB 21:53 → JP.MS 21:53
PROVIDERS: ADMIT Nurse Practitioner Family; ATTEND Nurse Practitioner Family
PROC: 10D07Z6 Extraction of Products of Conception, Vacuum, Via Natural or Artificial Opening (ICD-10-PCS; principal; 2017-12-25)
PROC: 0KQM0ZZ Repair Perineum Muscle, Open Approach (ICD-10-PCS; 2017-12-25)
PROC: 0UQGXZZ Repair Vagina, External Approach (ICD-10-PCS; 2017-12-25)
DX: O63.1 Prolonged second stage (of labor) (principal); O69.81X0 Labor and delivery complicated by cord around neck, without compression, not applicable or unspecified; O70.1 Second degree perineal laceration during delivery; O66.5 Attempted application of vacuum extractor and forceps; Z3A.40 40 weeks gestation of pregnancy; Z37.0 Single live birth; O71.4 Obstetric high vaginal laceration alone; Z88.0 Allergy status to penicillin
CPT/HCPCS: 36415; 59300; 59409; 80305; 81001; 85025; 85027; 86850; 86900; 86901; 99211; A9270-GY; J2590; J7120